=== PATIENT | male | born 1950 | race Caucasian/White ===

== ENCOUNTER 2017-01-07 11:49 | Inpatient (IN) ==
[2017-01-07] MEDS: *HR* Rivaroxaban 10 MG TABLET PO SCH (17:09)
[2017-01-07] MEDS: *HR* OxyCODONE/APAP 10/325 TABLET PO PRN ×2 (18:00→22:07)
[2017-01-08] MEDS: *HR* OxyCODONE/APAP 10/325 TABLET PO PRN ×4 (02:46→21:30)
[2017-01-08 05:08] LABS: Basophils # 0.1 K/mcL (0.0-0.2); Basophils % 0.7 %; Eosinophils # 0.3 K/mcL (0.0-0.6); Eosinophils % 4.5 %; Hematocrit 29.4 % (37.5-50.1); Hemoglobin 9.9 g/dL (12.9-16.9); Immature Granulocytes % 0.1 % (0-4); Lymphocytes % 26.7 %; Mean Corpuscular HGB Conc 33.7 g/dL (31.6-35.5); Mean Corpuscular Hemoglobin 28.7 pg (28.0-33.3); Mean Corpuscular Volume 85.2 fL (83.0-100.0); Mean Platelet Volume 10.1 fL (9.4-12.4); Monocytes # 0.8 K/mcL (0.0-1.3); Monocytes % 10.3 %; Neutrophils # 4.2 K/mcL (1.6-8.9); Platelet Count 221 K/mcL (140-400); Red Blood Count 3.45 M/mcL (4.19-5.50); Red Cell Distribution Width 14.3 % (11.5-14.5); Segmented Neutrophils % 57.7 %
[2017-01-08 05:09] LABS: INR 1.7; Prothrombin Time 18.4 Seconds (9.4-12.1)
[2017-01-08 05:12] LABS: Activated Partial Thrombo Time 37.2 Seconds (26.0-36.0)
[2017-01-08 05:22] LABS: BUN/Creatinine Ratio 18 (6-26); Blood Urea Nitrogen 14 mg/dL (8-26); Calcium 8.7 mg/dL (8.6-10.8); Carbon Dioxide 23 mEq/L (19-29); Chloride 106 mEq/L (98-109); Glucose 117 mg/dL (70-99); Osmolality,Calculated 290 (280-300); Sodium 139 mEq/L (136-145); eGFR For African Americans > 60 (> 60); eGFR For Non-African Americans > 60 (> 60)
[2017-01-08] MEDS: Lisinopril 20 MG TABLET PO SCH (09:03)
[2017-01-08] MEDS: Aspirin Enteric Coated 81 MG Tablet PO SCH (09:03)
[2017-01-08] MEDS: Nicotine 14 MG PATCH.TD24 TD SCH ×2 (09:04→09:06)
--- NOTE | 2017-01-08 15:51 | Internal Med History&Physical ---
Date of Encounter: 01/08/17 Time of Encounter: 15:00 Assessment and Plan (1) PAD (peripheral artery disease) Current visit: No Status: Chronic Status post fem-popliteal bypass. Continue Xarelto and aspirin. (2) Anemia Current visit: Yes Status: Acute We will order anemia testing in a.m. Qualifiers: Anemia type: unspecified type Qualified Code(s): D64.9 - Anemia, unspecified (3) Essential hypertension Current visit: No Status: Chronic Continue lisinopril and monitor blood pressure. (4) Mixed hyperlipidemia Current visit: No Status: Chronic Will check lipid profile in a.m. Internal Medicine - H&P: HPI Chief complaint: ASPVD Admitted From: Home Plans for Post Hospital Care: Home History of present illness: Mr. Gabriel is a 66 year old male who is being admitted to swing bed after a January 02 stay at [facility] where he presented with acute occlusion of RLE bypass graft done 7 weeks earlier. He had undergone femoral-popliteal graft with synthetic and vein jump graft to the dorsalis pedis artery November 2016. He was prescribed Xarelto. He developed acute occlusion and underwent open thrombectomy by Dr. Holt at [facility]. He left the hospital January 04 but returned a few hours later for worsening pain. He was readmitted and discharged to [facility] swing bed January 07 for ongoing therapy and pain control. Past Med Surg Social Fam HX - Past Medical History Medical history: arthritis, coronary artery disease, diabetes, hyperlipidemia, osteoporosis, seizures, other Psychiatric history: anxiety, depression - Past Surgical History Surgical History: LE Bypass, vascular surgery, other - Social History Smoking Status: Current every day smoker Packs per day: 1.5 Smokeless Tobacco Status: No Alcohol use: none Drug use: none - Family History Father Hx Family Respiratory Disorders: Yes Internal Medicine - H&P: Meds Diazepam [Valium] 5 mg PO DAILY 11/14/16 [History] Lisinopril [Zestril] 20 mg PO DAILY 11/14/16 [History] Sertraline [Zoloft] 100 mg PO DAILY 11/14/16 [History] Simvastatin [Zocor] 40 mg PO QPM #30 tablet 11/14/16 [Rx] Aspirin Enteric Coated [Aspirin EC] 81 mg PO DAILY #90 tablet. 01/03/17 [Rx] Rivaroxaban [Xarelto] 20 mg PO QPM 01/03/17 [History] OxyCODONE/APAP 10/325 [Percocet 10/325 MG] 1 each PO Q4HR PRN #40 tablet [Rx] Allergies No Known Allergies Allergy (Verified 01/03/17 18:58) All Systems PM: A 10-system review of systems was performed and is negative for pertinent findings except as documented above in the HPI. Review of systems: Gen.: He states his weight has been stable the past few months Cardiovascular: He has history of hypertension. He denies [place] heart failure angina DVT or pulmonary embolus. He thinks had an exercise stress test approximately 10 years earlier which was negative Respiratory: He smoked since age 23 a total of 23 years up to 2 packs per day. He has not had PFTs and does not wear home oxygen GI: Denies disorders of his liver gallbladder or exocrine pancreas : Denies hematuria dysuria or kidney stones Neurologic: He has been told he has chronic brain ischemia with resultant memory loss and occasional "shaking". He denies large distribution strokes or seizures Endocrine: He has been told he has borderline diabetes. He has history of hyperlipidemia but denies thyroid disease Hematology/oncology: He has had anemia but denies internal malignancies or blood disorders Psychiatric: He has depression but denies anxiety other mental health issues Musk skeletal: He has had bursitis with effusion of an elbow requiring fluid drainage. He had a knee injection with steroids and hyaluronic acid. He denies gout. - Constitutional Vitals: Temp Pulse Resp BP Pulse Ox 98.5 F 53 16 106/50 96 01/08/17 03:45 01/08/17 10:42 01/08/17 10:42 01/08/17 10:42 01/08/17 10:42 Exam: Gen.: He is a well-developed well-nourished male who appears in no severe distress at present time. HEENT: Head is atraumatic and normocephalic. Eyes: EOMI. There is no scleral icterus. Mouth: Mucosa is moist. Neck: Supple and nontender. There is no thyromegaly or adenopathy noted. Heart: Regular without murmurs gallops or ectopics. Lungs: No wheezes or crackles are heard. Abdomen: Soft and nontender. No masses or guarding are noted. Extremities: There is no cyanosis edema or clubbing noted. Dorsalis pedis and posttibial pulses are trace palpable bilaterally. He has healing incisions in the right anterior lower leg. A dressing is in place with drain in the lower right anterior leg. Neurologic: Mental status: He is talkative and a good historian. Cranial nerves : Smile is symmetric. Forehead wrinkles bilaterally. Tongue protrudes midline. EOMI. Motor: There is no pronator drift. Cerebellar: Finger to nose is intact bilaterally. Skin: Warm and dry Internal Med - H&P Results - Labs CBC & Chem 7: 01/08/17 04:25 01/08/17 04:25 Labs: Short CBC 01/08/17 Range/Units 04:25 WBC 7.4 (4.3-11.1) K/mcL Hgb 9.9 L (12.9-16.9) g/dL Hct 29.4 L (37.5-50.1) % Plt Count 221 (140-400) K/mcL Neutrophils # 4.2 (1.6-8.9) K/mcL BMP 01/08/17 04:25 Sodium 139 Potassium 4.0 Chloride 106 Carbon Dioxide 23 BUN 14 Creatinine 0.80 Glucose 117 H Calcium 8.7
[2017-01-08] MEDS: *HR* Rivaroxaban 10 MG TABLET PO SCH (17:11)
[2017-01-08] MEDS ORDERED: *HR* OxyCODONE/APAP 10/325 TABLET PO STA (23:24)
[2017-01-09 06:48] LABS: Basophils # 0.1 K/mcL (0.0-0.2); Basophils % 0.9 %; Eosinophils # 0.4 K/mcL (0.0-0.6); Eosinophils % 5.2 %; Hematocrit 33.1 % (37.5-50.1); Immature Granulocytes % 0.1 % (0-4); Lymphocytes % 29.7 %; Mean Corpuscular HGB Conc 33.2 g/dL (31.6-35.5); Mean Corpuscular Hemoglobin 28.6 pg (28.0-33.3); Mean Platelet Volume 10.2 fL (9.4-12.4); Monocytes # 0.7 K/mcL (0.0-1.3); Monocytes % 10.2 %; Neutrophils # 3.7 K/mcL (1.6-8.9); Platelet Count 268 K/mcL (140-400); Red Blood Count 3.85 M/mcL (4.19-5.50); Red Cell Distribution Width 14.3 % (11.5-14.5); Segmented Neutrophils % 53.9 %
[2017-01-09 07:10] LABS: Chol/HDL Ratio 4.3 (0-4.9)
[2017-01-09] MEDS: Nicotine 14 MG PATCH.TD24 TD SCH ×2 (10:52→11:24)
[2017-01-09] MEDS: Aspirin Enteric Coated 81 MG Tablet PO SCH (11:13)
[2017-01-09] MEDS: Lisinopril 20 MG TABLET PO SCH (11:13)
[2017-01-09 11:53] LABS: Folate 5.5 ng/mL (7.0-31.4)
[2017-01-09] MEDS: *HR* OxyCODONE/APAP 10/325 TABLET PO PRN (13:59)
--- NOTE | 2017-01-09 15:24 | Internal Med Progress Note ---
Date of Encounter: 01/09/17 Time of Encounter: 15:10 - Assessment and plan (1) PAD (peripheral artery disease) Current Visit: No Status: Chronic Assessment and plan: January 09. Status post fem-popliteal bypass. Continue Xarelto and aspirin (2) Anemia Current Visit: Yes Status: Acute Assessment and plan: January 09. Anemia testing showed deficiencies of iron, B12, and folate. Will give supplements for these. Qualifiers: Anemia type: unspecified type Qualified Code(s): D64.9 - Anemia, unspecified (3) Essential hypertension Current Visit: No Status: Chronic Assessment and plan: January 09. Blood pressure adequately controlled. Continue lisinopril (4) Mixed hyperlipidemia Current Visit: No Status: Chronic Assessment and plan: January 09. Lipid profile reviewed. Continue Zocor - Subjective Interval history: January 09. He has no new complaints. - Constitutional Vitals: Temp Pulse Resp BP Pulse Ox 98.3 F 61 14 120/71 96 01/09/17 08:52 01/09/17 13:14 01/09/17 13:14 01/09/17 13:14 01/09/17 13:14 Exam: He is walking in the [place] with a wheeled walker with a therapist. Affect is bright and cheerful. I reviewed his medications and lab results. Internal Medicine: Result - Labs CBC & Chem 7: 01/09/17 06:20 01/08/17 04:25 Labs: Short CBC 01/09/17 Range/Units 06:20 WBC 6.9 (4.3-11.1) K/mcL Hgb 11.0 L (12.9-16.9) g/dL Hct 33.1 L (37.5-50.1) % Plt Count 268 (140-400) K/mcL Neutrophils # 3.7 (1.6-8.9) K/mcL - ABG Interpretation ABG results: PT/INR, D-dimer PT 18.4 Seconds (9.4-12.1) H 01/08/17 04:25 Consult Discharge Plan - Plan Referrals: Sussy Owen MD [Primary Care Provider] - 1 week
[2017-01-09 15:56] LABS: Hemoglobin A1C 5.7 %
[2017-01-09] MEDS: *HR* Rivaroxaban 10 MG TABLET PO SCH (20:39)
[2017-01-10] MEDS: Aspirin Enteric Coated 81 MG Tablet PO SCH (10:07)
[2017-01-10] MEDS: Lisinopril 20 MG TABLET PO SCH (10:07)
[2017-01-10] MEDS: Cyanocobalamin (B-12) 1,000 MCG TABLET PO SCH (10:07)
[2017-01-10] MEDS: Ascorbic Acid 500 MG TABLET PO SCH ×2 (10:08→10:09)
[2017-01-10] MEDS: Folic Acid 1 MG TABLET PO SCH (10:08)
[2017-01-10] MEDS: Nicotine 14 MG PATCH.TD24 TD SCH (12:16)
[2017-01-10] MEDS: *HR* Rivaroxaban 10 MG TABLET PO SCH (18:02)
[2017-01-10] MEDS: *HR* OxyCODONE/APAP 10/325 TABLET PO PRN (21:00)
[2017-01-11] MEDS: *HR* OxyCODONE/APAP 10/325 TABLET PO PRN ×3 (06:23→21:09)
[2017-01-11] MEDS: Nicotine 14 MG PATCH.TD24 TD SCH (08:37)
[2017-01-11] MEDS: Folic Acid 1 MG TABLET PO SCH (08:37)
[2017-01-11] MEDS: Lisinopril 20 MG TABLET PO SCH (08:37)
[2017-01-11] MEDS: Ascorbic Acid 500 MG TABLET PO SCH (08:37)
[2017-01-11] MEDS: Cyanocobalamin (B-12) 1,000 MCG TABLET PO SCH (08:37)
[2017-01-11] MEDS: Aspirin Enteric Coated 81 MG Tablet PO SCH (08:37)
[2017-01-11] MEDS: *HR* Rivaroxaban 10 MG TABLET PO SCH (17:46)
[2017-01-12] MEDS: *HR* OxyCODONE/APAP 10/325 TABLET PO PRN ×2 (06:52→13:39)
[2017-01-12 08:39] VITALS: BP 146/73
[2017-01-12] MEDS: Cyanocobalamin (B-12) 1,000 MCG TABLET PO SCH (08:49)
[2017-01-12] MEDS: Ascorbic Acid 500 MG TABLET PO SCH (08:49)
[2017-01-12] MEDS: Aspirin Enteric Coated 81 MG Tablet PO SCH (08:49)
[2017-01-12] MEDS: Lisinopril 20 MG TABLET PO SCH (08:50)
[2017-01-12] MEDS: Folic Acid 1 MG TABLET PO SCH (08:50)
[2017-01-12] MEDS: Nicotine 14 MG PATCH.TD24 TD SCH (08:53)
--- NOTE | 2017-01-12 12:41 | Discharge Summary ---
Date of Encounter: 01/12/17 Time of Encounter: 12:30 - Discharge Diagnosis (1) PAD (peripheral artery disease) Priority: Primary Status: Chronic (2) Anemia Priority: Secondary Status: Acute Qualifiers: Anemia type: unspecified type Qualified Code(s): D64.9 - Anemia, unspecified (3) Essential hypertension Priority: Secondary Status: Chronic (4) Mixed hyperlipidemia Priority: Secondary Status: Chronic - Discharge Medications Prescriptions: Ascorbic Acid [Vitamin C] 500 mg PO DAILY #30 tablet Cyanocobalamin (B-12) [Vitamin B12] 1,000 mcg PO DAILY #30 tablet Ferrous Sulfate 325 mg PO DAILY #30 tablet Folic Acid 1 mg PO DAILY #30 tablet Home Medications: Diazepam [Valium] 5 mg PO DAILY 11/14/16 [History] Lisinopril [Zestril] 20 mg PO DAILY 11/14/16 [History] Sertraline [Zoloft] 100 mg PO DAILY 11/14/16 [History] Simvastatin [Zocor] 40 mg PO QPM #30 tablet 11/14/16 [Rx] Aspirin Enteric Coated [Aspirin EC] 81 mg PO DAILY #90 tablet. 01/03/17 [Rx] Rivaroxaban [Xarelto] 20 mg PO QPM 01/03/17 [History] OxyCODONE/APAP 10/325 [Percocet 10/325 MG] 1 each PO Q4HR PRN #40 tablet [Rx] Ascorbic Acid [Vitamin C] 500 mg PO DAILY #30 tablet 01/12/17 [Rx] Cyanocobalamin (B-12) [Vitamin B12] 1,000 mcg PO DAILY #30 tablet 01/12/17 [Rx] Ferrous Sulfate 325 mg PO DAILY #30 tablet 01/12/17 [Rx] Folic Acid 1 mg PO DAILY #30 tablet 01/12/17 [Rx] Allergies/Adverse Reactions: Allergies No Known Allergies Allergy (Verified 01/03/17 18:58) Date of admission: 01/07/17 15:53 Primary care physician: Sussy Joseph Consults: 01/07/17 16:09 Consult to Occupational Therapy [CONS] Routine Comment: evaluate, develop, and implement plan of care Consult to Physical Therapy [CONS] Routine Comment: evaluate, develop, and implement plan of care Consult to Packing Floor Worker [CONS] Routine Reason for SW Consult: discharge planning - Patient Status Disposition: Home Health Service Functional capacity at discharge: uses cane/walker Overall status at discharge: patient is progressing back to baseline - Discharge Instructions Follow Up With: Sussy Owen MD [Primary Care Provider] - 1 week - Diet and Activity Activity: as per physical therapy Diet: advance to your usual diet Hospital course: Mr. Gabriel is a 66 year old male who is being admitted to swing bed after a January 02 stay at [facility] where he presented with acute occlusion of RLE bypass graft done 7 weeks earlier. He had undergone femoral-popliteal graft with synthetic and vein jump graft to the dorsalis pedis artery November 2016. He was prescribed Xarelto. He developed acute occlusion and underwent open thrombectomy by Dr. Holt at [facility]. He left the hospital January 04 but returned a few hours later for worsening pain. He was readmitted and discharged to [facility] swing bed January 07 for ongoing therapy and pain control. Initial orders were written by the discharging physicians at [facility]. I saw him on January 08 and performed the swing bed history and physical. He had physical therapy and occupational therapy evaluation with ongoing intervention. He made satisfactory progress and felt stable for discharge home on January 12. He will continue to use a walker at home. Anemia testing showed iron 35, transferrin saturation 8%, ferritin 73, B12 173, and folate 5.5. He will be given supplemental ferrous sulfate with vitamin C, folic acid, and B12 at discharge. His hemoglobin was 11.0 on January 09. On January 12 he felt stable for discharge home. He will follow with Dr. Owen within 1 week. He will follow with his vascular surgeons as directed. He will have home health nursing service visits for dressing evaluation and overall monitoring. - Time Spent with Patient Total time spent providing and/or coordinating discharge services: - Constitutional Vitals: Temp Pulse Resp BP Pulse Ox 98.3 F 73 16 146/73 97 01/12/17 07:10 01/12/17 07:10 01/12/17 07:10 01/12/17 07:10 01/12/17 07:10
--- NOTE | 2017-01-12 12:46 | Physician Discharge Referral ---
Home Health/Hosp Referral Info Transfer to: Home Health Attending Provider: Daniel Provider in Charge Post Discharge: PCP (Sussy Owen M.D.) - Diagnosis (1) PAD (peripheral artery disease) Priority: Primary Status: Chronic (2) Anemia Priority: Secondary Status: Acute (3) Essential hypertension Priority: Secondary Status: Chronic (4) Mixed hyperlipidemia Priority: Secondary Status: Chronic - Respiratory Orders Smoking Cessation: Smoking cessation has been advised. For more information, call the [place] Tobacco Quit Line at 3-674-LPYB-NOW. - Dressing/Wound Care Type of Dressing/Treatments w/Frequency: Evaluate and dress lower right leg surgical wounds daily - Diet/Nutrition Diet/Nutrition Orders: Regular - Activity Activity Orders: Walker - Services Needed Following services are medically necessary services: Nursing, Home Health Aide, Physical Therapy, Occupational Therapy - Transfer Medications Prescriptions: Ascorbic Acid [Vitamin C] 500 mg PO DAILY #30 tablet Cyanocobalamin (B-12) [Vitamin B12] 1,000 mcg PO DAILY #30 tablet Ferrous Sulfate 325 mg PO DAILY #30 tablet Folic Acid 1 mg PO DAILY #30 tablet Home Medications: Diazepam [Valium] 5 mg PO DAILY 11/14/16 [History] Lisinopril [Zestril] 20 mg PO DAILY 11/14/16 [History] Sertraline [Zoloft] 100 mg PO DAILY 11/14/16 [History] Simvastatin [Zocor] 40 mg PO QPM #30 tablet 11/14/16 [Rx] Aspirin Enteric Coated [Aspirin EC] 81 mg PO DAILY #90 tablet. 01/03/17 [Rx] Rivaroxaban [Xarelto] 20 mg PO QPM 01/03/17 [History] OxyCODONE/APAP 10/325 [Percocet 10/325 MG] 1 each PO Q4HR PRN #40 tablet [Rx] Ascorbic Acid [Vitamin C] 500 mg PO DAILY #30 tablet 01/12/17 [Rx] Cyanocobalamin (B-12) [Vitamin B12] 1,000 mcg PO DAILY #30 tablet 01/12/17 [Rx] Ferrous Sulfate 325 mg PO DAILY #30 tablet 01/12/17 [Rx] Folic Acid 1 mg PO DAILY #30 tablet 01/12/17 [Rx] Allergies/Adverse Reactions: Allergies No Known Allergies Allergy (Verified 01/03/17 18:58) Certification: Further, I certify that my clinical findings support that this patient is homebound (i.e. absences from home require considerable and taxing effort and are for medical reasons or [facility] services or infrequently or short duration when for other reasons) because: Homebound Reason: Leaving home requires considerable and taxing effort due to condition (Postoperative femoropopliteal bypass procedure) Attestation: My signature below is to certify that this patient is under my care and that I, or nurse practitioner, or a physician's land surveyor assistant working with me, has a face-to -face encounter with this patient.
== END 2017-01-12 13:43 | disposition home health service (06) | DRG 949 ==
LOC: INPPIK 15:53
PROVIDERS: ADMIT Internal Medicine; ATTEND Internal Medicine

== ENCOUNTER 2017-05-07 16:29 | Inpatient (IN) ==
[2017-05-07] MEDS ORDERED: *HR* OxyCODONE/APAP 10/325 TABLET PO PRN (17:08)
[2017-05-07] MEDS: *HR* OxyCODONE/APAP 10/325 TABLET PO PRN (21:34)
[2017-05-08 05:44] LABS: Basophils # 0.1 K/mcL (0.0-0.2); Basophils % 0.7 %; Eosinophils # 0.3 K/mcL (0.0-0.6); Eosinophils % 3.8 %; Hematocrit 29.7 % (37.5-50.1); Hemoglobin 9.6 g/dL (12.9-16.9); Immature Granulocytes % 0.2 % (0-4); Lymphocytes # 1.7 K/mcL (0.6-4.6); Mean Corpuscular HGB Conc 32.3 g/dL (31.6-35.5); Mean Corpuscular Hemoglobin 26.4 pg (28.0-33.3); Mean Corpuscular Volume 81.6 fL (83.0-100.0); Mean Platelet Volume 9.9 fL (9.4-12.4); Monocytes # 0.7 K/mcL (0.0-1.3); Monocytes % 8.1 %; Neutrophils # 5.5 K/mcL (1.6-8.9); Platelet Count 331 K/mcL (140-400); Red Blood Count 3.64 M/mcL (4.19-5.50); Red Cell Distribution Width 16.2 % (11.5-14.5); Segmented Neutrophils % 67.2 %
[2017-05-08 05:55] LABS: INR 1.2; Prothrombin Time 12.5 Seconds (9.4-12.1)
[2017-05-08 05:58] LABS: Activated Partial Thrombo Time 29.9 Seconds (26.0-36.0)
[2017-05-08 06:04] LABS: eGFR For African Americans > 60 (> 60); eGFR For Non-African Americans > 60 (> 60)
[2017-05-08] MEDS: diazePAM 5 MG TABLET PO SCH (08:12)
[2017-05-08] MEDS: Lisinopril 20 MG TABLET PO SCH (08:13)
[2017-05-08] MEDS: Aspirin Enteric Coated 81 MG Tablet PO SCH (08:13)
--- NOTE | 2017-05-08 11:19 | Internal Med History&Physical ---
Date of Encounter: 05/08/17 Time of Encounter: 10:50 Assessment and Plan (1) Above knee amputation of right lower extremity Current visit: Yes Status: Acute He will have PT and OT evaluations with ongoing interventions. Continue aspirin and Plavix. (2) Anemia Current visit: No Status: Acute We will order anemia testing in a.m. Qualifiers: Anemia type: unspecified type Qualified Code(s): D64.9 - Anemia, unspecified (3) Depression Current visit: Yes Status: Chronic Continue Zoloft. I offered him an additional medication and he will decide in 2 -3 days if he wishes this. Qualifiers: Depression Type: unspecified Qualified Code(s): F32.9 - Major depressive disorder, single episode, unspecified (4) Essential hypertension Current visit: No Status: Chronic Continue Zestril (5) Hypokalemia Current visit: Yes Status: Acute Potassium level was 3.4 on 05/07/2017. We will give supplemental potassium and recheck labs in a.m. Internal Medicine - H&P: HPI Chief complaint: Right AKA Admitted From: Hospital to Hospital Transfer Plans for Post Hospital Care: Home History of present illness: Mr. Gabriel is a 66 year old male underwent right AKA at [facility] 05/04/2017 for severe ASPVD with failed femoropopliteal bypass surgery earlier this year. His postop course was unremarkable and he was admitted to [facility] swing bed for rehabilitation therapy prior to returning to independent living. He has history of hypertension. He denies [place] heart failure angina DVT or pulmonary embolus. He thinks had an exercise stress test approximately 10 years earlier which was negative Past Med Surg Social Fam HX - Past Medical History Medical history: arthritis, coronary artery disease, diabetes, hyperlipidemia, osteoporosis, seizures, other Psychiatric history: anxiety, depression - Past Surgical History Surgical History: LE Bypass, vascular surgery, other - Social History Smoking Status: Current every day smoker Smokeless Tobacco Status: No Alcohol use: none Drug use: none - Family History Father Living Status: Hx Family Cardiac Disorders: Yes (CAD) Hx Family Respiratory Disorders: Yes (Emphesema and Asthma) Hx Family Cancer: No Hx Family GI Disorders: No Hx Family Endocrine Disorder: No Hx Family Neuromuscular Disorders: No Hx Family Neurologic Disorders: No Hx Family HEENT Disorders: No Hx Family Autoimmune Disorders: No Internal Medicine - H&P: Richard Duartepril [Zestril] 20 mg PO DAILY 11/14/16 [History] Sertraline [Zoloft] 100 mg PO DAILY 11/14/16 [History] Simvastatin [Zocor] 40 mg PO QPM #30 tablet 11/14/16 [Rx] Aspirin Enteric Coated [Aspirin EC] 81 mg PO DAILY #90 tablet. 01/03/17 [Rx] Clopidogrel [Plavix] 75 mg PO DAILY 05/04/17 [History] OxyCODONE/APAP 10/325 [Percocet 10/325 MG] 1 each PO Q6H PRN #10 tab 05/07/17 [ Rx] diazePAM [Valium] 5 mg PO DAILY #6 05/07/17 [Rx] Allergies No Known Allergies Allergy (Verified 01/03/17 18:58) All Systems PM: A 10-system review of systems was performed and is negative for pertinent findings except as documented above in the HPI. Review of systems: Review of systems from his December 2016 [facility] hospitalization were reviewed and revised as below. Gen.: He states his weight has been stable the past few months Cardiovascular: As per history of present illness Respiratory: He smoked since age 23 a total of 23 years up to 2 packs per day. He states he quit smoking after the December 2016 [facility] hospitalization. He has not had PFTs and does not wear home oxygen GI: Denies disorders of his liver gallbladder or exocrine pancreas : Denies hematuria dysuria or kidney stones Neurologic: He has been told he has chronic brain ischemia with resultant memory loss and occasional "shaking". He denies large distribution strokes or seizures Endocrine: He has been told he has borderline diabetes. Hemoglobin A1c was 5.7 % on 01/09/2017. He has history of hyperlipidemia but denies thyroid disease Hematology/oncology: He had anemia during his December 2016 hospitalization and was found to have B12, folate, and iron deficiency. He was prescribed supplements at discharge. These have been discontinued. He denies internal malignancies or blood disorders Psychiatric: He has depression but denies anxiety other mental health issues Musk skeletal: He has had bursitis with effusion of an elbow requiring fluid drainage. He had a knee injection with steroids and hyaluronic acid. He denies gout. - Constitutional Vitals: Temp Pulse Resp BP Pulse Ox 98.0 F 75 18 128/80 96 05/08/17 07:03 07/28/17 07:03 05/08/17 07:03 05/08/17 07:03 05/08/17 07:03 Exam: Gen.: He is a well-developed well-nourished male who appears in no acute distress at present time HEENT: Head is atraumatic and normocephalic. Eyes: EOMI. There is no scleral icterus. Mouth: Mucosa is moist. Neck: Supple and nontender. There is no thyromegaly or adenopathy noted. Heart: Regular without murmurs gallops or ectopics. Lungs: No wheezes or crackles are heard. Abdomen: Soft and nontender. No masses or guarding are noted. Extremities: There is no cyanosis edema or clubbing noted of the left leg. The right leg has had AKA and has elastic wrap on the stump which I did not remove. Dorsalis pedis and posterior tibial pulses are trace palpable bilaterally in the left foot. Neurologic: Mental status: He is talkative and a good historian. Cranial nerves : Smile is symmetric. Forehead wrinkles bilaterally. Tongue protrudes midline. EOMI. Motor: There is no pronator drift. Cerebellar: Fair to nose is intact bilaterally. Skin: Warm and dry Internal Med - H&P Results - Labs CBC & Chem 7: 05/08/17 05:12 05/08/17 05:12 Labs: Short CBC 05/08/17 Range/Units 05:12 WBC 8.2 (4.3-11.1) K/mcL Hgb 9.6 L (12.9-16.9) g/dL Hct 29.7 L (37.5-50.1) % Plt Count 331 (140-400) K/mcL Neutrophils # 5.5 (1.6-8.9) K/mcL BMP 05/08/17 05:12 Creatinine 0.69 L
[2017-05-08] MEDS: *HR* OxyCODONE/APAP 10/325 TABLET PO PRN ×2 (12:49→19:54)
[2017-05-09 05:15] LABS: Basophils # 0.1 K/mcL (0.0-0.2); Basophils % 0.6 %; Eosinophils # 0.4 K/mcL (0.0-0.6); Eosinophils % 4.4 %; Hematocrit 28.4 % (37.5-50.1); Hemoglobin 9.4 g/dL (12.9-16.9); Immature Granulocytes % 0.4 % (0-4); Lymphocytes # 1.9 K/mcL (0.6-4.6); Lymphocytes % 22.7 %; Mean Corpuscular HGB Conc 33.1 g/dL (31.6-35.5); Mean Corpuscular Volume 81.6 fL (83.0-100.0); Mean Platelet Volume 9.8 fL (9.4-12.4); Monocytes # 0.7 K/mcL (0.0-1.3); Monocytes % 8.6 %; Neutrophils # 5.2 K/mcL (1.6-8.9); Platelet Count 338 K/mcL (140-400); Red Blood Count 3.48 M/mcL (4.19-5.50); Red Cell Distribution Width 16.1 % (11.5-14.5); Segmented Neutrophils % 63.3 %
[2017-05-09 05:43] LABS: BUN/Creatinine Ratio 17 (6-26); Blood Urea Nitrogen 12 mg/dL (8-26); Calcium 9.1 mg/dL (8.6-10.8); Carbon Dioxide 24 mEq/L (19-29); Chloride 105 mEq/L (98-109); Glucose 115 mg/dL (70-99); Osmolality,Calculated 293 (280-300); Potassium 3.9 mEq/L (3.5-4.5); Sodium 141 mEq/L (136-145); eGFR For African Americans > 60 (> 60); eGFR For Non-African Americans > 60 (> 60)
[2017-05-09] MEDS: diazePAM 5 MG TABLET PO SCH (08:49)
[2017-05-09] MEDS: Lisinopril 20 MG TABLET PO SCH (08:49)
[2017-05-09] MEDS: Aspirin Enteric Coated 81 MG Tablet PO SCH (08:49)
[2017-05-09] MEDS: *HR* OxyCODONE/APAP 10/325 TABLET PO PRN ×2 (13:55→20:39)
[2017-05-09 14:17] LABS: % Iron Saturation 6 % (20-55); Iron 20 mcg/dL (65-175); Transferrin 253 mg/dL (174-364)
[2017-05-09 14:37] LABS: Ferritin 76 ng/ml (22-275)
[2017-05-09 14:43] LABS: Folate 11.7 ng/mL (7.0-31.4)
[2017-05-10] MEDS: *HR* OxyCODONE/APAP 10/325 TABLET PO PRN ×3 (01:02→21:15)
[2017-05-10] MEDS: Aspirin Enteric Coated 81 MG Tablet PO SCH (08:08)
[2017-05-10] MEDS: diazePAM 5 MG TABLET PO SCH (08:08)
[2017-05-10] MEDS: Lisinopril 20 MG TABLET PO SCH (08:08)
--- NOTE | 2017-05-10 09:59 | Internal Med Progress Note ---
Date of Encounter: 05/10/17 Time of Encounter: 09:50 - Assessment and plan (1) Above knee amputation of right lower extremity Current Visit: Yes Status: Acute Assessment and plan: May 10. Continue PT and OT. Continue Plavix at present dose. I will reduce aspirin since he has iron deficiency anemia. (2) Anemia Current Visit: No Status: Acute Assessment and plan: May 10. Will start ferrous sulfate with vitamin C in a.m. Reduce aspirin dose to every other day. Qualifiers: Anemia type: unspecified type Qualified Code(s): D64.9 - Anemia, unspecified (3) Depression Current Visit: Yes Status: Chronic Assessment and plan: May 10. Continue Zoloft. Qualifiers: Depression Type: unspecified Qualified Code(s): F32.9 - Major depressive disorder, single episode, unspecified (4) Essential hypertension Current Visit: No Status: Chronic Assessment and plan: May 10. Continue Zestril. (5) Hypokalemia Current Visit: Yes Status: Acute Assessment and plan: May 10. Resolved. Continue supplemental KCl. - Subjective Interval history: May 10. He has no new complaints - Constitutional Vitals: Temp Pulse Resp BP Pulse Ox 98.9 F 74 18 120/74 96 05/10/17 06:23 05/10/17 06:23 05/10/17 06:23 05/10/17 06:23 05/10/17 06:23 Exam: He is resting comfortably in bed and appears in no acute distress. I reviewed his medications and lab results. Internal Medicine: Result - Labs CBC & Chem 7: 05/09/17 04:47 05/09/17 04:47 - ABG Interpretation ABG results: PT/INR, D-dimer PT 12.5 Seconds (9.4-12.1) H 05/08/17 05:12 Consult Discharge Plan - Plan Referrals: Uzair Alex MD [Partnered Physician] - 06/17/17 9:45 am (staple removal - 6 wk R AKA f/u ) Sussy Owen MD [Primary Care Provider] - 05/20/17 9:15 am
[2017-05-10] MEDS ORDERED: MOM Conc 10 ML UD.LIQ PO ONE (15:09)
[2017-05-10] MEDS: traZODone 50 MG TABLET PO PRN (21:14)
[2017-05-11] MEDS: Ascorbic Acid 500 MG TABLET PO SCH (06:12)
[2017-05-11] MEDS: Lisinopril 20 MG TABLET PO SCH (09:48)
[2017-05-11] MEDS: diazePAM 5 MG TABLET PO SCH (09:48)
[2017-05-11] MEDS: *HR* OxyCODONE/APAP 10/325 TABLET PO PRN ×3 (09:51→19:36)
--- NOTE | 2017-05-11 12:15 | Internal Med Progress Note ---
Date of Encounter: 05/11/17 Time of Encounter: 12:00 - Assessment and plan (1) Above knee amputation of right lower extremity Current Visit: Yes Status: Acute Assessment and plan: May 10. Continue PT and OT. Continue Plavix at present dose. I will reduce aspirin since he has iron deficiency anemia. (2) Anemia Current Visit: No Status: Acute Assessment and plan: May 10. Will start ferrous sulfate with vitamin C in a.m. Reduce aspirin dose to every other day. Qualifiers: Anemia type: unspecified type Qualified Code(s): D64.9 - Anemia, unspecified (3) Depression Current Visit: Yes Status: Chronic Assessment and plan: May 10. Continue Zoloft. Qualifiers: Depression Type: unspecified Qualified Code(s): F32.9 - Major depressive disorder, single episode, unspecified (4) Essential hypertension Current Visit: No Status: Chronic Assessment and plan: May 10. Continue Zestril. May 11. Blood pressure is borderline low at times. We will decrease lisinopril to 10 mg daily. (5) Hypokalemia Current Visit: Yes Status: Acute Assessment and plan: May 10. Resolved. Continue supplemental KCl. - Subjective Interval history: May 10. He has no new complaints May 11. He had an accidental fall off the bed last evening. There was transient bleeding from the stapled surgical incision line. There was no other significant injury. He has no new complaints at present. - Constitutional Vitals: Temp Pulse Resp BP Pulse Ox 99.1 F 84 18 110/69 94 05/11/17 10:00 05/11/17 11:45 05/11/17 11:45 05/11/17 11:45 05/11/17 11:45 Exam: The incision line shows no active bleeding. There is no significant bruising of the right leg stump. His affect is overall cheerful. I reviewed his medications and lab results. Internal Medicine: Result - Labs CBC & Chem 7: 05/09/17 04:47 05/09/17 04:47 - ABG Interpretation ABG results: PT/INR, D-dimer PT 12.5 Seconds (9.4-12.1) H 05/08/17 05:12 Consult Discharge Plan - Plan Referrals: Uzair Alex MD [Partnered Physician] - 06/17/17 9:45 am (staple removal - 6 wk R AKA f/u ) Sussy Owen MD [Primary Care Provider] - 05/20/17 9:15 am
[2017-05-11] MEDS: traZODone 50 MG TABLET PO PRN (21:00)
[2017-05-12] MEDS: Ascorbic Acid 500 MG TABLET PO SCH (05:58)
[2017-05-12] MEDS: *HR* OxyCODONE/APAP 10/325 TABLET PO PRN ×3 (06:01→18:57)
[2017-05-12 06:28] LABS: Basophils # 0.1 K/mcL (0.0-0.2); Basophils % 0.7 %; Eosinophils # 0.4 K/mcL (0.0-0.6); Eosinophils % 3.7 %; Hematocrit 33.4 % (37.5-50.1); Hemoglobin 10.8 g/dL (12.9-16.9); Immature Granulocytes % 0.2 % (0-4); Lymphocytes # 1.9 K/mcL (0.6-4.6); Lymphocytes % 18.1 %; Mean Corpuscular HGB Conc 32.3 g/dL (31.6-35.5); Mean Corpuscular Hemoglobin 26.6 pg (28.0-33.3); Mean Corpuscular Volume 82.3 fL (83.0-100.0); Mean Platelet Volume 9.2 fL (9.4-12.4); Monocytes # 0.6 K/mcL (0.0-1.3); Monocytes % 5.6 %; Neutrophils # 7.5 K/mcL (1.6-8.9); Platelet Count 498 K/mcL (140-400); Red Blood Count 4.06 M/mcL (4.19-5.50); Segmented Neutrophils % 71.7 %
[2017-05-12 06:43] LABS: BUN/Creatinine Ratio 20 (6-26); Blood Urea Nitrogen 17 mg/dL (8-26); Calcium 9.5 mg/dL (8.6-10.8); Carbon Dioxide 25 mEq/L (19-29); Chloride 103 mEq/L (98-109); Glucose 128 mg/dL (70-99); Osmolality,Calculated 291 (280-300); Potassium 4.8 mEq/L (3.5-4.5); Sodium 139 mEq/L (136-145); eGFR For African Americans > 60 (> 60); eGFR For Non-African Americans > 60 (> 60)
[2017-05-12] MEDS: MOM Conc 10 ML UD.LIQ PO SCH (07:51)
[2017-05-12] MEDS: diazePAM 5 MG TABLET PO SCH (07:52)
[2017-05-12] MEDS: Lisinopril 20 MG TABLET PO SCH (07:52)
[2017-05-12] MEDS: Aspirin Enteric Coated 81 MG Tablet PO SCH (07:52)
[2017-05-12] MEDS: Ondansetron ODT 4 MG TAB.RAPDIS SL PRN (15:49)
[2017-05-12] MEDS: traZODone 50 MG TABLET PO PRN (22:07)
[2017-05-13] MEDS: *HR* OxyCODONE/APAP 10/325 TABLET PO PRN ×4 (00:07→20:14)
[2017-05-13] MEDS: Ascorbic Acid 500 MG TABLET PO SCH (06:40)
[2017-05-13] MEDS: diazePAM 5 MG TABLET PO SCH (08:12)
[2017-05-13] MEDS: Lisinopril 20 MG TABLET PO SCH (08:12)
--- NOTE | 2017-05-13 12:35 | Internal Med Progress Note ---
Date of Encounter: 05/13/17 Time of Encounter: 12:25 - Assessment and plan (1) Above knee amputation of right lower extremity Current Visit: Yes Status: Acute Assessment and plan: May 10. Continue PT and OT. Continue Plavix at present dose. I will reduce aspirin since he has iron deficiency anemia. (2) Anemia Current Visit: No Status: Acute Assessment and plan: May 10. Will start ferrous sulfate with vitamin C in a.m. Reduce aspirin dose to every other day. Qualifiers: Anemia type: unspecified type Qualified Code(s): D64.9 - Anemia, unspecified (3) Depression Current Visit: Yes Status: Chronic Assessment and plan: May 10. Continue Zoloft. Qualifiers: Depression Type: unspecified Qualified Code(s): F32.9 - Major depressive disorder, single episode, unspecified (4) Essential hypertension Current Visit: No Status: Chronic Assessment and plan: May 10. Continue Zestril. May 11. Blood pressure is borderline low at times. We will decrease lisinopril to 10 mg daily. May 13. Blood pressure stable on lisinopril 10 mg daily. (5) Hypokalemia Current Visit: Yes Status: Acute Assessment and plan: May 10. Resolved. Continue supplemental KCl. May 13. We will discontinue supplemental potassium - Subjective Interval history: May 10. He has no new complaints May 11. He had an accidental fall off the bed last evening. There was transient bleeding from the stapled surgical incision line. There was no other significant injury. He has no new complaints at present. May 13. He has no new complaints and feels overall improved. He denies need for additional antidepressant. - Constitutional Vitals: Temp Pulse Resp BP Pulse Ox 98.1 F 74 16 127/56 98 05/13/17 07:03 05/13/17 07:45 05/13/17 07:45 05/13/17 07:45 05/13/17 07:45 Exam: He is resting comfortably in bed appears in no acute distress. His conversation is appropriate. I reviewed his medications and lab results. Internal Medicine: Result - Labs CBC & Chem 7: 05/12/17 06:08 05/12/17 06:08 - ABG Interpretation ABG results: PT/INR, D-dimer PT 12.5 Seconds (9.4-12.1) H 05/08/17 05:12 Consult Discharge Plan - Plan Referrals: Uzair Alex MD [Partnered Physician] - 06/17/17 9:45 am (staple removal - 6 wk R AKA f/u ) Sussy Owen MD [Primary Care Provider] - 05/20/17 9:15 am
[2017-05-13] MEDS: traZODone 50 MG TABLET PO PRN (20:15)
[2017-05-14] MEDS: *HR* OxyCODONE/APAP 10/325 TABLET PO PRN ×4 (06:13→20:10)
[2017-05-14] MEDS: Ascorbic Acid 500 MG TABLET PO SCH (06:14)
[2017-05-14] MEDS: Aspirin Enteric Coated 81 MG Tablet PO SCH (09:30)
[2017-05-14] MEDS: MOM Conc 10 ML UD.LIQ PO SCH (09:30)
[2017-05-14] MEDS: diazePAM 5 MG TABLET PO SCH (09:34)
[2017-05-14] MEDS: Lisinopril 20 MG TABLET PO SCH (09:34)
[2017-05-14] MEDS: Ondansetron ODT 4 MG TAB.RAPDIS SL PRN (11:09)
[2017-05-14] MEDS: Gabapentin 100 MG CAPSULE PO SCH ×2 (11:47→16:12)
[2017-05-14] MEDS: *HR* FentaNYL PATCH 12 MCG PATCH TD SCH (18:16)
[2017-05-14] MEDS: traZODone 50 MG TABLET PO PRN (20:10)
[2017-05-15] MEDS: Gabapentin 100 MG CAPSULE PO SCH ×4 (03:33→20:59)
[2017-05-15] MEDS: *HR* OxyCODONE/APAP 10/325 TABLET PO PRN ×4 (03:33→22:14)
[2017-05-15] MEDS: Ascorbic Acid 500 MG TABLET PO SCH (06:32)
[2017-05-15] MEDS: Lisinopril 20 MG TABLET PO SCH (09:00)
[2017-05-15] MEDS: diazePAM 5 MG TABLET PO SCH (09:00)
--- NOTE | 2017-05-15 15:07 | Internal Med Progress Note ---
Date of Encounter: 05/15/17 Time of Encounter: 15:00 - Assessment and plan (1) Above knee amputation of right lower extremity Current Visit: Yes Status: Acute Assessment and plan: May 10. Continue PT and OT. Continue Plavix at present dose. I will reduce aspirin since he has iron deficiency anemia. May 15. Continue present care. Anticipate discharge home 05/19/2017. (2) Anemia Current Visit: No Status: Acute Assessment and plan: May 10. Will start ferrous sulfate with vitamin C in a.m. Reduce aspirin dose to every other day. May 15. Hemoglobin improved to 10.8 on 05/12/2017. Continue present management Qualifiers: Anemia type: unspecified type Qualified Code(s): D64.9 - Anemia, unspecified (3) Depression Current Visit: Yes Status: Chronic Assessment and plan: May 10. Continue Zoloft. Qualifiers: Depression Type: unspecified Qualified Code(s): F32.9 - Major depressive disorder, single episode, unspecified (4) Essential hypertension Current Visit: No Status: Chronic Assessment and plan: May 10. Continue Zestril. May 11. Blood pressure is borderline low at times. We will decrease lisinopril to 10 mg daily. May 13. Blood pressure stable on lisinopril 10 mg daily. (5) Hypokalemia Current Visit: Yes Status: Acute Assessment and plan: May 10. Resolved. Continue supplemental KCl. May 13. We will discontinue supplemental potassium - Subjective Interval history: May 10. He has no new complaints May 11. He had an accidental fall off the bed last evening. There was transient bleeding from the stapled surgical incision line. There was no other significant injury. He has no new complaints at present. May 13. He has no new complaints and feels overall improved. He denies need for additional antidepressant. May 15. He has no complaints today. He had worsened leg pain yesterday. A CT of the right leg was done and showed no acute pathology. He was started on Duragesic patch in addition to previously ordered medications. He feels better today. - Constitutional Vitals: Temp Pulse Resp BP Pulse Ox 98.1 F 74 14 103/59 95 05/14/17 20:31 05/15/17 13:42 05/15/17 13:42 05/15/17 13:42 05/15/17 13:42 Exam: He is sitting in a wheelchair at bedside and appears in no acute distress. He is pleasant and talkative. He again denies any need for additional antidepressant. I reviewed his medications and lab results. Internal Medicine: Result - Labs CBC & Chem 7: 05/12/17 06:08 05/12/17 06:08 - ABG Interpretation ABG results: PT/INR, D-dimer PT 12.5 Seconds (9.4-12.1) H 05/08/17 05:12 - Impressions Impressions Femur CT 05/14/17 16:03 IMPRESSION: No evidence of abscess or acute osseous abnormality status post right [id number] amputation. Mild subcutaneous stranding deep to the skin jorge luis may reflect cellulitis. D/ / 05/14/2017 16:46:56 Yony Garcia MD / rina Interpreting Provider: Yony Garcia MD Consult Discharge Plan - Plan Referrals: Uzair Alex MD [Partnered Physician] - 06/17/17 9:45 am (staple removal - 6 wk R AKA f/u ) Sussy Owen MD [Primary Care Provider] - 05/20/17 9:15 am
[2017-05-15] MEDS: traZODone 50 MG TABLET PO PRN (22:15)
[2017-05-16] MEDS: Ascorbic Acid 500 MG TABLET PO SCH (06:37)
[2017-05-16] MEDS: *HR* OxyCODONE/APAP 10/325 TABLET PO PRN ×3 (06:38→18:08)
[2017-05-16] MEDS: MOM Conc 10 ML UD.LIQ PO SCH (07:54)
[2017-05-16] MEDS: diazePAM 5 MG TABLET PO SCH (08:12)
[2017-05-16] MEDS: Aspirin Enteric Coated 81 MG Tablet PO SCH (08:12)
[2017-05-16] MEDS: Lisinopril 20 MG TABLET PO SCH (08:12)
[2017-05-16] MEDS: Gabapentin 100 MG CAPSULE PO SCH ×3 (08:35→20:12)
[2017-05-16] MEDS: traZODone 50 MG TABLET PO PRN (20:11)
[2017-05-17] MEDS: Ascorbic Acid 500 MG TABLET PO SCH (06:29)
[2017-05-17] MEDS: *HR* OxyCODONE/APAP 10/325 TABLET PO PRN ×3 (06:31→18:50)
[2017-05-17] MEDS: Lisinopril 20 MG TABLET PO SCH (08:17)
[2017-05-17] MEDS: diazePAM 5 MG TABLET PO SCH (08:18)
[2017-05-17] MEDS: Gabapentin 100 MG CAPSULE PO SCH ×3 (08:21→20:21)
--- NOTE | 2017-05-17 10:29 | Internal Med Progress Note ---
Date of Encounter: 05/17/17 Time of Encounter: 10:15 - Assessment and plan (1) Above knee amputation of right lower extremity Current Visit: Yes Status: Acute Assessment and plan: May 10. Continue PT and OT. Continue Plavix at present dose. I will reduce aspirin since he has iron deficiency anemia. May 15. Continue present care. Anticipate discharge home 05/19/2017. (2) Anemia Current Visit: No Status: Acute Assessment and plan: May 10. Will start ferrous sulfate with vitamin C in a.m. Reduce aspirin dose to every other day. May 15. Hemoglobin improved to 10.8 on 05/12/2017. Continue present management Qualifiers: Anemia type: unspecified type Qualified Code(s): D64.9 - Anemia, unspecified (3) Depression Current Visit: Yes Status: Chronic Assessment and plan: May 10. Continue Zoloft. Qualifiers: Depression Type: unspecified Qualified Code(s): F32.9 - Major depressive disorder, single episode, unspecified (4) Essential hypertension Current Visit: No Status: Chronic Assessment and plan: May 10. Continue Zestril. May 11. Blood pressure is borderline low at times. We will decrease lisinopril to 10 mg daily. May 13. Blood pressure stable on lisinopril 10 mg daily. (5) Hypokalemia Current Visit: Yes Status: Acute Assessment and plan: May 10. Resolved. Continue supplemental KCl. May 13. We will discontinue supplemental potassium - Subjective Interval history: May 10. He has no new complaints May 11. He had an accidental fall off the bed last evening. There was transient bleeding from the stapled surgical incision line. There was no other significant injury. He has no new complaints at present. May 13. He has no new complaints and feels overall improved. He denies need for additional antidepressant. May 15. He has no complaints today. He had worsened leg pain yesterday. A CT of the right leg was done and showed no acute pathology. He was started on Duragesic patch in addition to previously ordered medications. He feels better today. May 17. He has no new complaints. He states his leg pain has significantly lessened and is back to baseline. - Constitutional Vitals: Temp Pulse Resp BP Pulse Ox 98.4 F 78 16 130/81 95 05/17/17 07:25 05/17/17 07:25 05/17/17 07:25 05/17/17 07:25 05/17/17 07:25 Exam: He is resting comfortably in bed. His incision line with jorge luis is clean and dry. Has a 1 cm sebaceous cyst on the anterior scrotum in the midline without significant drainage. I reviewed his medications and lab results. Internal Medicine: Result - Labs CBC & Chem 7: 05/12/17 06:08 05/12/17 06:08 - ABG Interpretation ABG results: PT/INR, D-dimer PT 12.5 Seconds (9.4-12.1) H 05/08/17 05:12 Consult Discharge Plan - Plan Referrals: Uzair Alex MD [Partnered Physician] - 06/17/17 9:45 am (staple removal - 6 wk R AKA f/u ) Sussy Owen MD [Primary Care Provider] - 05/20/17 9:15 am
[2017-05-17] MEDS: *HR* FentaNYL PATCH 12 MCG PATCH TD SCH (17:07)
[2017-05-17] MEDS: traZODone 50 MG TABLET PO PRN (20:19)
[2017-05-18] MEDS: *HR* OxyCODONE/APAP 10/325 TABLET PO PRN ×5 (02:27→19:57)
[2017-05-18] MEDS: Ascorbic Acid 500 MG TABLET PO SCH (06:29)
[2017-05-18] MEDS: Lisinopril 20 MG TABLET PO SCH (07:56)
[2017-05-18] MEDS: MOM Conc 10 ML UD.LIQ PO SCH (07:56)
[2017-05-18] MEDS: Gabapentin 100 MG CAPSULE PO SCH ×3 (07:56→20:01)
[2017-05-18] MEDS: Aspirin Enteric Coated 81 MG Tablet PO SCH (07:56)
[2017-05-18] MEDS: diazePAM 5 MG TABLET PO SCH (07:57)
[2017-05-19] MEDS: *HR* OxyCODONE/APAP 10/325 TABLET PO PRN ×3 (03:02→11:11)
[2017-05-19 06:49] VITALS: BP 127/74
[2017-05-19] MEDS: Ascorbic Acid 500 MG TABLET PO SCH (06:53)
[2017-05-19] MEDS: Ondansetron ODT 4 MG TAB.RAPDIS SL PRN (08:07)
[2017-05-19] MEDS: Gabapentin 100 MG CAPSULE PO SCH (08:08)
[2017-05-19] MEDS: diazePAM 5 MG TABLET PO SCH (08:08)
[2017-05-19] MEDS: Lisinopril 20 MG TABLET PO SCH (08:08)
--- NOTE | 2017-05-19 09:53 | Discharge Summary ---
Date of Encounter: 05/19/17 Time of Encounter: 09:35 - Discharge Diagnosis (1) Above knee amputation of right lower extremity Priority: Primary Status: Acute (2) Anemia Priority: Secondary Status: Acute Qualifiers: Anemia type: iron deficiency Iron deficiency anemia type: unspecified iron deficiency Qualified Code(s): D50.9 - Iron deficiency anemia, unspecified (3) Depression Priority: Secondary Status: Chronic Qualifiers: Depression Type: unspecified Qualified Code(s): F32.9 - Major depressive disorder, single episode, unspecified (4) Essential hypertension Priority: Secondary Status: Chronic (5) Hypokalemia Priority: Secondary Status: Resolved - Discharge Medications Prescriptions: Ascorbic Acid [Vitamin C] 500 mg PO 0630 #30 tab diazePAM [Valium] 5 mg PO DAILY #7 FentaNYL PATCH [Duragesic] 12 mcg TD Q72H #2 Ferrous Sulfate 325 mg PO 0630 #30 tab Gabapentin [Neurontin] 100 mg PO 0800,1500,2100 #21 OxyCODONE/APAP 10/325 [Percocet 10/325 MG] 1 each PO Q4H PRN #30 tab PRN Reason: Pain Home Medications: Sertraline [Zoloft] 100 mg PO DAILY 11/14/16 [History] Simvastatin [Zocor] 40 mg PO QPM #30 tablet 11/14/16 [Rx] Clopidogrel [Plavix] 75 mg PO DAILY 05/04/17 [History] Ascorbic Acid [Vitamin C] 500 mg PO 0630 #30 tab 05/19/17 [Rx] Aspirin Enteric Coated [Aspirin EC] 81 mg PO Q48H #90 tablet. 05/19/17 [Rx] FentaNYL PATCH [Duragesic] 12 mcg TD Q72H #2 05/19/17 [Rx] Ferrous Sulfate 325 mg PO 0630 #30 tab 05/19/17 [Rx] Gabapentin [Neurontin] 100 mg PO 0800,1500,2100 #21 05/19/17 [Rx] Lisinopril [Zestril] 10 mg PO DAILY #0 05/19/17 [Rx] OxyCODONE/APAP 10/325 [Percocet 10/325 MG] 1 each PO Q4H PRN #30 tab 05/19/17 [ Rx] diazePAM [Valium] 5 mg PO DAILY #7 05/19/17 [Rx] Allergies/Adverse Reactions: Allergies No Known Allergies Allergy (Verified 01/03/17 18:58) Date of admission: 05/07/17 16:35 Primary care physician: Sussy Joseph Consults: 05/07/17 17:03 Consult to Occupational Therapy [CONS] Routine Comment: Evaluate, develop and implement POC Reason for Consult: Evaluate, develop and implement POC Consult to Physical Therapy [CONS] Routine Comment: Evaluate, develop and implement POC Reason for Consult: Evaluate, develop and implement POC 05/07/17 18:14 Consult to Refrigeration Insulator [CONS] Routine Reason for SW Consult: d/c planning - Patient Status Disposition: Home Health Service Functional capacity at discharge: uses cane/walker Overall status at discharge: patient is progressing back to baseline - Discharge Instructions Follow Up With: Uzair Alex MD [Partnered Physician] - 06/17/17 9:45 am (staple removal - 6 wk R AKA f/u ) Sussy Owen MD [Primary Care Provider] - 05/20/17 9:15 am - Diet and Activity Activity: as per physical therapy Diet: advance to your usual diet Hospital course: Mr. 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 His postop course was unremarkable and he was admitted to [facility] swing bed for rehabilitation therapy prior to returning to independent living. Initial orders were written by the discharging physicians at [facility]. I saw him on May 08 and performed a swing bed history and physical. He had physical therapy and occupational therapy evaluations and ongoing interventions. He made satisfactory progress. On May 19 it was felt he was stable for discharge home. Aspirin dose was reduced to every other day during hospitalization because of anemia. His hemoglobin stabilized. He will remain on the reduced dose at discharge. Plavix was continued at a dose of 75 mg daily. Anemia testing showed findings consistent with iron deficiency. He was started on ferrous sulfate with vitamin C and this will be continued at discharge. He will follow with his PCP Dr. Owen within 1 week. He will follow with his vascular surgeon as directed. - Time Spent with Patient Total time spent providing and/or coordinating discharge services: - Constitutional Vitals: Temp Pulse Resp BP Pulse Ox 98.4 F 65 18 127/74 98 08/08/17 06:37 05/19/17 06:37 05/19/17 06:37 05/19/17 06:37 05/19/17 06:37
--- NOTE | 2017-05-19 10:00 | Physician Discharge Referral ---
Home Health/Hosp Referral Info Transfer to: Home Health Attending Provider: Daniel Provider in Charge Post Discharge: PCP Jose De Jesus) - Diagnosis (1) Above knee amputation of right lower extremity Priority: Primary Status: Acute (2) Anemia Priority: Secondary Status: Acute (3) Depression Priority: Secondary Status: Chronic (4) Essential hypertension Priority: Secondary Status: Chronic (5) Hypokalemia Priority: Secondary Status: Resolved - Respiratory Orders Smoking Cessation: Smoking cessation has been advised. For more information, call the [place] Tobacco Quit Line at 9-462-OYRI-NOW. - Diet/Nutrition Diet/Nutrition Orders: Regular - Activity Activity Orders: Walker - Services Needed Following services are medically necessary services: Nursing, Home Health Aide, Physical Therapy, Occupational Therapy - Transfer Medications Prescriptions: Ascorbic Acid [Vitamin C] 500 mg PO 0630 #30 tab diazePAM [Valium] 5 mg PO DAILY #7 FentaNYL PATCH [Duragesic] 12 mcg TD Q72H #2 Ferrous Sulfate 325 mg PO 0630 #30 tab Gabapentin [Neurontin] 100 mg PO 0800,1500,2100 #21 OxyCODONE/APAP 10/325 [Percocet 10/325 MG] 1 each PO Q4H PRN #30 tab PRN Reason: Pain Home Medications: Sertraline [Zoloft] 100 mg PO DAILY 11/14/16 [History] Simvastatin [Zocor] 40 mg PO QPM #30 tablet 11/14/16 [Rx] Clopidogrel [Plavix] 75 mg PO DAILY 05/04/17 [History] Ascorbic Acid [Vitamin C] 500 mg PO 0630 #30 tab 05/19/17 [Rx] Aspirin Enteric Coated [Aspirin EC] 81 mg PO Q48H #90 tablet. 05/19/17 [Rx] FentaNYL PATCH [Duragesic] 12 mcg TD Q72H #2 05/19/17 [Rx] Ferrous Sulfate 325 mg PO 0630 #30 tab 05/19/17 [Rx] Gabapentin [Neurontin] 100 mg PO 0800,1500,2100 #21 05/19/17 [Rx] Lisinopril [Zestril] 10 mg PO DAILY #0 05/19/17 [Rx] OxyCODONE/APAP 10/325 [Percocet 10/325 MG] 1 each PO Q4H PRN #30 tab 05/19/17 [ Rx] diazePAM [Valium] 5 mg PO DAILY #7 05/19/17 [Rx] Allergies/Adverse Reactions: Allergies No Known Allergies Allergy (Verified 01/03/17 18:58) Certification: Further, I certify that my clinical findings support that this patient is homebound (i.e. absences from home require considerable and taxing effort and are for medical reasons or [employer] services or infrequently or short duration when for other reasons) because: Homebound Reason: Leaving home requires considerable and taxing effort due to condition (Right AKA) Attestation: My signature below is to certify that this patient is under my care and that I, or nurse practitioner, or a physician's assignment desk assistant working with me, has a face-to -face encounter with this patient.
--- NOTE | 2017-05-19 14:01 | Discharge Summary ---
Date of Encounter: 05/19/17 Time of Encounter: 09:35 - Discharge Diagnosis (1) Above knee amputation of right lower extremity Priority: Primary Status: Acute (2) Anemia Priority: Secondary Status: Acute Qualifiers: Anemia type: iron deficiency Iron deficiency anemia type: unspecified iron deficiency Qualified Code(s): D50.9 - Iron deficiency anemia, unspecified (3) Depression Priority: Secondary Status: Chronic Qualifiers: Depression Type: unspecified Qualified Code(s): F32.9 - Major depressive disorder, single episode, unspecified (4) Essential hypertension Priority: Secondary Status: Chronic (5) Hypokalemia Priority: Secondary Status: Resolved - Discharge Medications Prescriptions: Ascorbic Acid [Vitamin C] 500 mg PO 0630 #30 tab diazePAM [Valium] 5 mg PO DAILY #7 FentaNYL PATCH [Duragesic] 12 mcg TD Q72H #2 Ferrous Sulfate 325 mg PO 0630 #30 tab Gabapentin [Neurontin] 100 mg PO 0800,1500,2100 #21 OxyCODONE/APAP 10/325 [Percocet 10/325 MG] 1 each PO Q4H PRN #30 tab PRN Reason: Pain Home Medications: Sertraline [Zoloft] 100 mg PO DAILY 11/14/16 [History] Simvastatin [Zocor] 40 mg PO QPM #30 tablet 11/14/16 [Rx] Clopidogrel [Plavix] 75 mg PO DAILY 05/04/17 [History] Ascorbic Acid [Vitamin C] 500 mg PO 0630 #30 tab 05/19/17 [Rx] Aspirin Enteric Coated [Aspirin EC] 81 mg PO Q48H #90 tablet. 05/19/17 [Rx] FentaNYL PATCH [Duragesic] 12 mcg TD Q72H #2 05/19/17 [Rx] Ferrous Sulfate 325 mg PO 0630 #30 tab 05/19/17 [Rx] Gabapentin [Neurontin] 100 mg PO 0800,1500,2100 #21 05/19/17 [Rx] Lisinopril [Zestril] 10 mg PO DAILY #0 05/19/17 [Rx] OxyCODONE/APAP 10/325 [Percocet 10/325 MG] 1 each PO Q4H PRN #30 tab 05/19/17 [ Rx] diazePAM [Valium] 5 mg PO DAILY #7 05/19/17 [Rx] Allergies/Adverse Reactions: Allergies No Known Allergies Allergy (Verified 01/03/17 18:58) Date of admission: 05/07/17 16:35 Primary care physician: Sussy Joseph Consults: 05/07/17 17:03 Consult to Occupational Therapy [CONS] Routine Comment: Evaluate, develop and implement POC Reason for Consult: Evaluate, develop and implement POC Consult to Physical Therapy [CONS] Routine Comment: Evaluate, develop and implement POC Reason for Consult: Evaluate, develop and implement POC 05/07/17 18:14 Consult to Scouring Machine Tender [CONS] Routine Reason for SW Consult: d/c planning - Patient Status Disposition: Home Health Service - Discharge Instructions Follow Up With: Uzair Alex MD [Partnered Physician] - 06/17/17 9:45 am (staple removal - 6 wk R AKA f/u ) Sussy Owen MD [Primary Care Provider] - 05/20/17 9:15 am Hospital course: Mr. Gabriel is a 66 year old male - Time Spent with Patient Total time spent providing and/or coordinating discharge services: - Constitutional Vitals: Temp Pulse Resp BP Pulse Ox 98.4 F 65 18 127/74 98 05/19/17 06:37 05/19/17 06:37 05/19/17 06:37 05/19/17 06:37 05/19/17 06:37
== END 2017-05-19 14:25 | disposition home health service (06) | DRG 560 ==
LOC: INPPIK 16:35
PROVIDERS: ADMIT Internal Medicine; ATTEND Internal Medicine